=== PATIENT | male | born 1985 | race African-American/Black ===

== ENCOUNTER 2018-07-13 05:47 | Emergency (ER) | payer MEDICAID, OTHER ==
[2018-07-13 06:46] LABS: Absolute Monocytes 0.7 K/uL (0.1-1.3); Absolute Neutrophil 5.7 K/uL (1.8-8.0); Basophils % 0.6 % (0-1.3); Eosinophils % 2.7 % (0-4.4); Hematocrit 40.9 % (39.6-49.0); Lymphocytes % 30.5 % (15.3-44.8); MPV 8.2 fL (7.6-11.3); Monocytes % 7.5 % (3.3-12.3); RBC Red Blood Cell Count 4.85 M/uL (4.33-5.43)
[2018-07-13 07:07] LABS: BUN Blood Urea Nitrogen 10 mg/dL (7-18); Bicarbonate 29 mmol/L (21-32); Glucose Level 100 mg/dL (74-106); NT PRO-BNP < 5 pg/mL (<125); Sodium Level 142 mmol/L (136-145)
--- NOTE | 2018-07-13 07:28 | EDPHYS ---
Physician Documentation [facility] Name: Jamal Nevarez Age: 33 yrs Sex: Male : 1985 Arrival Date: 07/13/2018 Time: 05:48 Bed 16 Private MD: ED Physician Saul Nieto HPI: 07/13 06:20 This 33 yrs old Black Male presents to ER via Ambulatory with complaints of Feet cp Swelling, Shoulder Pain. 06:20 The patient or guardian complains of pain, tenderness. right shoulder and left cp shoulder. Context: resulted from an unknown reason, The patient reports no decreased range of motion. Onset: The symptoms/episode began/occurred for months. Modifying factors: The symptoms are aggravated by movement. 06:20 The patient presents with pain, that is acute, swelling. The complaints affect the left cp foot, right foot. Context: resulted from prolonged standing and walking yesterday while performing community service, the patient can fully bear weight, the patient is able to ambulate, with mild difficulty. 06:20 Associated signs and symptoms: Pertinent negatives: calf tenderness, fever, rash, cp warmth. Severity of symptoms: in the emergency department the symptoms are unchanged. Historical: - Allergies: 06:06 No Known Allergies; bb - Home Meds: 06:06 None [Active]; bb - PMHx: 06:06 None; bb - PSHx: 06:06 None; bb - Immunization history:: Adult Immunizations up to date. - Social history:: Smoking status: Patient uses tobacco products, denies chronic smoking, but will smoke occasionally, Patient/guardian denies using alcohol, street drugs. - Ebola Screening: : No symptoms or risks identified at this time. ROS: 06:24 Constitutional: Negative for body aches, chills, fever, poor PO intake. cp 06:24 Eyes: Negative for injury, pain, redness, and discharge. cp 06:24 ENT: Negative for drainage from ear(s), ear pain, sore throat, difficulty swallowing, difficulty handling secretions. 06:24 Neck: Negative for pain with movement, pain at rest, stiffness. 06:24 Cardiovascular: Positive for edema, Negative for chest pain, palpitations. 06:24 Respiratory: Negative for cough, shortness of breath, wheezing. 06:24 Abdomen/GI: Negative for abdominal pain, nausea, vomiting, and diarrhea. 06:24 Back: Negative for pain at rest, pain with movement. 06:24 : Negative for urinary symptoms. 06:24 MS/extremity: Positive for pain, of the left shoulder and right shoulder, Negative for injury or acute deformity, decreased range of motion, paresthesias. 06:24 Skin: Negative for cellulitis, rash. 06:24 Neuro: Negative for altered mental status, headache, weakness. 06:24 All other systems are negative. Exam: 06:35 Constitutional: The patient appears in no acute distress, alert, awake, comfortable, cp non-diaphoretic, non-toxic, well developed, well nourished, obese. 06:35 Head/Face: Normocephalic, atraumatic. cp 06:35 Eyes: Periorbital structures: appear normal, Conjunctiva: normal, no exudate, no injection, Sclera: no appreciated abnormality, Lids and lashes: appear normal, bilaterally. 06:35 ENT: External ear(s): are unremarkable, Nose: is normal, Mouth: Lips: moist, Oral mucosa: pink and intact, moist, Posterior pharynx: is normal, airway is patent, no erythema, no exudate. 06:35 Neck: ROM/movement: is normal, is supple, without pain, no range of motions limitations, no nuchal rigidity. 06:35 Chest/axilla: Inspection: normal, Palpation: is normal, no crepitus, no tenderness. 06:35 Cardiovascular: Rate: tachycardic, Rhythm: regular, Heart sounds: murmur, not appreciated, rub, not appreciated, gallop, not appreciated, Edema: pedal edema, that is mild, ankle edema, that is mild, JVD: is not appreciated. 06:35 Respiratory: the patient does not display signs of respiratory distress, Respirations: normal, no use of accessory muscles, no retractions, no splinting, no tachypnea, labored breathing, is not present, Breath sounds: are clear throughout, no decreased breath sounds, no stridor, no wheezing. 06:35 Abdomen/GI: Inspection: obese Palpation: abdomen is soft and non-tender, in all quadrants, rebound tenderness, is not appreciated, voluntary guarding, is not appreciated, involuntary guarding, is not appreciated. 06:35 Back: pain, is absent, ROM is normal. 06:35 Musculoskeletal/extremity: ROM: full active range of motion, in the left shoulder and right shoulder, Pulses: noted to be 2+ in the right radial artery and left radial artery, Sensation intact. Joints: All joints are normal except the left shoulder and right shoulder displays mild lateral tenderness. 06:35 Skin: no rash present. 07:03 ECG was reviewed by the Attending Physician. cp Vital Signs: 06:06 BP 140 / 91; Pulse 106; Resp 20 S; Temp 98(O); Pulse Ox 98% on R/A; Weight 154.22 kg bb (R); Height 5 ft. 5 in. (165.10 cm) (R); Pain 8/10; 07:20 BP 147 / 93; Pulse 97; Resp 18; Temp 97.8(TE); Pulse Ox 100% on R/A; ph 06:06 Body Mass Index 56.58 (154.22 kg, 165.10 cm) bb MDM: 06:09 Patient medically screened. cp 06:30 Differential diagnosis: tendonitis, sprain, diabetes, DVT, CHF, dependent edema, kidney cp disease. 07:25 Data reviewed: vital signs, nurses notes, lab test result(s), EKG, and as a result, I cp will discharge patient. 07:26 Test interpretation: by ED physician or midlevel provider: ECG. cp 07:26 Counseling: I had a detailed discussion with the patient and/or guardian regarding: the cp historical points, exam findings, and any diagnostic results supporting the discharge/admit diagnosis, lab results, to return to the emergency department if symptoms worsen or persist or if there are any questions or concerns that arise at home. 07/13 06:15 Order name: Basic Metabolic Panel; Complete Time: 07:08 cp 07/13 06:15 Order name: CBC with Diff; Complete Time: 07:08 cp 07/13 07:08 Interpretation: Normal except: HGB 13.3; PLT 408. cp 07/13 06:15 Order name: EKG; Complete Time: 06:15 cp 07/13 06:15 Order name: EKG - Nurse/Tech; Complete Time: 07:09 cp 07/13 06:15 Order name: NT PRO-BNP; Complete Time: 07:08 cp 07/13 07:09 Interpretation: Within normal limits. cp 07/13 06:15 Order name: Cardiac monitoring; Complete Time: 07:09 cp 07/13 06:15 Order name: IV Saline Lock; Complete Time: 06:42 cp 07/13 06:15 Order name: Labs collected and sent; Complete Time: 06:42 cp 07/13 06:15 Order name: O2 Per Protocol; Complete Time: 06:50 cp 07/13 06:15 Order name: O2 Sat Monitoring; Complete Time: 07:09 cp EC:03 Rate is 99 beats/min. Rhythm is regular. CO interval is normal. QRS interval is normal. cp QT interval is normal. T waves are Inverted in lead III. Interpreted by me. Reviewed by me. Administered Medications: No medications were administered Disposition: 08:51 Co-signature as Attending Physician, Saul Nieto MD I agree with the assessment and [facility] plan of care. Disposition: 07/13/18 07:27 Discharged to Home. Impression: Pain in unspecified shoulder - bilateral, Edema, unspecified. - Condition is Stable. - Discharge Instructions: Edema, Shoulder Pain, Shoulder Range of Motion Exercises, Form - Excuse from Work, School, or Physical Activity. - Prescriptions for Ibuprofen 800 mg Oral Tablet - take 1 tablet by ORAL route every 8 hours As needed take with food; 30 tablet. - Work release form, Medication Reconciliation Form, Thank You Letter, Antibiotic Education, Prescription Opioid Use form. - Follow up: Private Physician; When: 2 - 3 days; Reason: pain and symptoms continue. - Problem is new. - Symptoms are unchanged. Signatures: Dispatcher [employer] Saul Locke MD MD cha Ballard, Brenda RN RN Gisell Cintron RN RN Saul Burton PA PA cp Corrections: (The following items were deleted from the chart) 08:05 07:27 07/13/2018 07:27 Discharged to Home. Impression: Pain in unspecified shoulder - ph bilateral; Edema, unspecified. Condition is Stable. Forms are Medication Reconciliation Form, Thank You Letter, Antibiotic Education, Prescription Opioid Use. Follow up: Private Physician; When: 2 - 3 days; Reason: pain and symptoms continue. Problem is new. Symptoms are unchanged. cp
--- NOTE | 2018-07-13 07:28 | ER ---
Nurse's Notes [facility] Name: Jamal Nevarez Age: 33 yrs Sex: Male : 1985 Arrival Date: 07/13/2018 Time: 05:48 Bed 16 Private MD: Diagnosis: Pain in unspecified shoulder-bilateral;Edema, unspecified Presentation: 07/13 06:04 Presenting complaint: Patient states: he has had bad bilateral shoulder pain for months bb and yesterday he did community service and now both his feet are swollen and painful. Transition of care: patient was not received from another setting of care. Onset of symptoms was July 12, 2018. Risk Assessment: Do you want to hurt yourself or someone else? Patient reports no desire to harm self or others. Initial Sepsis Screen: Does the patient meet any 2 criteria? No. Patient's initial sepsis screen is negative. Does the patient have a suspected source of infection? No. Patient's initial sepsis screen is negative. Care prior to arrival: None. 06:04 Method Of Arrival: Ambulatory bb 06:04 Acuity: WILLIS 3 bb Historical: - Allergies: 06:06 No Known Allergies; bb - Home Meds: 06:06 None [Active]; bb - PMHx: 06:06 None; bb - PSHx: 06:06 None; bb - Immunization history:: Adult Immunizations up to date. - Social history:: Smoking status: Patient uses tobacco products, denies chronic smoking, but will smoke occasionally, Patient/guardian denies using alcohol, street drugs. - Ebola Screening: : No symptoms or risks identified at this time. Screenin:25 Abuse screen: Denies threats or abuse. Denies injuries from another. Nutritional rr5 screening: No deficits noted. Tuberculosis screening: No symptoms or risk factors identified. Fall Risk IV access (20 points). Total Montalvo Fall Scale indicates No Risk (0-24 pts). Assessment: 06:20 General: Appears in no apparent distress. uncomfortable, Behavior is calm, cooperative, rr5 appropriate for age. Pain: Complains of pain in shoulder Pain does not radiate. Pain currently is 8 out of 10 on a pain scale. Quality of pain is described as aching, Pain began gradually, Is intermittent. Neuro: Level of Consciousness is awake, alert, obeys commands, Oriented to person, place, time, situation, Appropriate for age. Cardiovascular: Capillary refill < 3 seconds Patient's skin is warm and dry. Respiratory: Airway is patent Respiratory effort is even, unlabored, Respiratory pattern is regular, symmetrical. GI: : No signs and/or symptoms were reported regarding the genitourinary system. EENT: No signs and/or symptoms were reported regarding the EENT system. 06:20 Derm: Skin is intact, Skin is pink, warm \T\ dry. Musculoskeletal: Swelling present in rr5 right leg and left leg. 07:00 Reassessment: Patient appears in no apparent distress at this time. No changes from rr5 previously documented assessment. Patient is alert, oriented x 3, equal unlabored respirations, skin warm/dry/pink. no complaints made. awaiting for result. 07:17 Reassessment: Patient appears in no apparent distress at this time. Patient and/or ph family updated on plan of care and expected duration. Pain level reassessed. Patient is alert, oriented x 3, equal unlabored respirations, skin warm/dry/pink. Pt resting quietly, awaiting lab results, VSS. 08:02 Reassessment: Patient appears in no apparent distress at this time. Patient and/or ph family updated on plan of care and expected duration. Pain level reassessed. Patient is alert, oriented x 3, equal unlabored respirations, skin warm/dry/pink. Pt d/c home. Vital Signs: 06:06 BP 140 / 91; Pulse 106; Resp 20 S; Temp 98(O); Pulse Ox 98% on R/A; Weight 154.22 kg bb (R); Height 5 ft. 5 in. (165.10 cm) (R); Pain 8/10; 07:20 BP 147 / 93; Pulse 97; Resp 18; Temp 97.8(TE); Pulse Ox 100% on R/A; ph 06:06 Body Mass Index 56.58 (154.22 kg, 165.10 cm) ED Course: 05:48 Patient arrived in ED. am2 06:06 Triage completed. bb 06:06 Arm band placed on Patient placed in an exam room, on a stretcher, on pulse oximetry. bb 06:08 Saul Washington PA is PHCP. cp 06:09 Saul Nieto MD is Attending Physician. cp 06:15 Patient has correct armband on for positive identification. Bed in low position. Call rr5 light in reach. quality assurance monitor chassis on. Pulse ox on. NIBP on. 06:25 Jose A Santiago, RN is Primary Nurse. rr5 06:40 Inserted saline lock: 20 gauge in right antecubital area, using aseptic technique. ag4 Blood collected. 08:03 No provider procedures requiring assistance completed. IV discontinued, intact, ph bleeding controlled, No redness/swelling at site. Pressure dressing applied. Administered Medications: No medications were administered Outcome: 07:27 Discharge ordered by . cp 08:04 Discharged to home ambulatory. ph 08:04 Condition: good 08:04 Discharge instructions given to patient, Instructed on discharge instructions, follow up and referral plans. medication usage, Demonstrated understanding of instructions, follow-up care, medications, Prescriptions given X 1. 08:05 Patient left the ED. ph Signatures: Nikki Landon RN RN bb Gisell Chavira RN RN ph Saul Washington, PA PA Malina Padilla am2 Jose A Santiago, DRE RN rr5 Koffi Leo ag4
--- NOTE | 2018-07-13 10:43 | EKG ---
Test Date: 2018-07-13 Test Time: 06:59:23 Environmental Quality Analyst: BUNNY MEASUREMENT RESULTS: Intervals: Rate: 99 MO: 142 QRSD: 94 QT: 362 QTc: 464 [place]: P: 44 MO: 142 QRS: -28 T: 17 INTERPRETIVE STATEMENTS: Normal sinus rhythm Minimal voltage criteria for LVH, may be normal variant Borderline ECG No previous ECG available for comparison Electronically Signed On 07-13-18 10:42:00 CDT by Jose David Carrillo
== END 2018-07-13 08:05 | disposition home or self-care (01) ==
LOC: ER 05:47
DX: M25.511 Pain in right shoulder (principal); R60.0 Localized edema; Z72.0 Tobacco use
CPT/HCPCS: 36415; 80048; 83880; 85025; 93005; 99284